=== PATIENT | female | born 1970 | race Two or more races ===

== ENCOUNTER 2018-08-27 07:27 | Emergency (ER) | payer OTHER ==
[~2018-08-27] VITALS: Ht 157.5 cm; Wt 61.2 kg
[~2018-08-27 07:27] MED LIST: TRAMADOL HCL-AP1 TAB PO
[2018-08-27] MEDS ORDERED: MUCINEX1200 MG PO (11:14)
== END 2018-08-27 13:20 | disposition home or self-care (01) ==
LOC: ER 07:27
DX: J06.9 Acute upper respiratory infection, unspecified (principal)

== ENCOUNTER 2018-12-31 17:03 | Emergency (ER) | payer OTHER ==
[~2018-12-31] VITALS: Ht 157.5 cm; Wt 56.7 kg
[~2018-12-31 17:03] MED LIST changes: +MUCINEX1200 MG PO
[2018-12-31] MEDS ORDERED: INTESTINEX680 M1 PO (23:44)
[2018-12-31] MEDS ORDERED: PEPCID AC20 MG PO (23:44)
[2018-12-31] MEDS ORDERED: PHENERGAN25 MG PO (23:44)
== END 2019-01-01 00:01 | disposition home or self-care (01) ==
LOC: ER 17:03
DX: K52.9 Noninfective gastroenteritis and colitis, unspecified (principal)

== ENCOUNTER 2020-12-28 10:53 | Emergency (ER) | payer OTHER ==
[~2020-12-28] VITALS: Ht 157.5 cm; Wt 59.0 kg
[~2020-12-28 10:53] MED LIST changes: +INTESTINEX680 M1 PO; +PEPCID AC20 MG PO; +PHENERGAN25 MG PO
[2020-12-28] MEDS ORDERED: SKELAGESIC PO (13:09)
[2020-12-28] MEDS ORDERED: DOLOGESIC 500-1 EACH (13:10)
== END 2020-12-28 13:15 | disposition home or self-care (01) ==
LOC: ER 10:53
DX: S90.02XA Contusion of left ankle, initial encounter (principal); W18.39XA Other fall on same level, initial encounter; Y93.89 Activity, other specified; Y92.098 Other place in other non-institutional residence as the place of occurrence of the external cause; Y99.8 Other external cause status

== ENCOUNTER 2021-04-01 09:15 | Emergency (ER) | payer OTHER ==
[~2021-04-01] VITALS: Ht 157.5 cm; Wt 59.0 kg
[~2021-04-01 09:15] MED LIST changes: +DOLOGESIC 500-1 EACH; +SKELAGESIC PO
== END 2021-04-01 14:07 | disposition home or self-care (01) ==
LOC: ER 09:15
DX: B34.9 Viral infection, unspecified (principal); J32.8 Other chronic sinusitis; Z20.822 Contact with and (suspected) exposure to COVID-19

== ENCOUNTER 2021-07-25 09:33 | Emergency (ER) | payer OTHER ==
[~2021-07-25] VITALS: Ht 157.5 cm; Wt 61.2 kg
[2021-07-25] MEDS ORDERED: FLONASE ALLERG9.9 ML NASAL (12:29)
[2021-07-25] MEDS ORDERED: SKELAGESIC PO (12:29)
== END 2021-07-25 12:49 ==
LOC: ER 09:33
DX: J02.8 Acute pharyngitis due to other specified organisms (principal); Z20.822 Contact with and (suspected) exposure to COVID-19

== ENCOUNTER 2021-08-28 08:00 | Outpatient (CLI) | payer OTHER ==
[~2021-08-28 08:00] MED LIST changes: +FLONASE ALLERG9.9 ML NASAL
== END 2021-08-28 08:30 | disposition home or self-care (01) ==
LOC: PPH VACUNA 08:00
PROVIDERS: ATTEND Emergency Medicine Pediatric Emergency Medicine
DX: Z23 Encounter for immunization (principal)